=== PATIENT | female | born 1995 | race Caucasian/White ===

== ENCOUNTER 2016-12-22 14:57 | Outpatient (CLI) | payer OTHER ==
[~2016-12-22] VITALS: Ht 162.6 cm; Wt 131.0 kg
[~2016-12-22 14:57] MED LIST: INSPMPHMLG
[2016-12-22] MEDS ORDERED: ACETAMINOPHEN 325 MG TAB PO PRN (15:15)
[2016-12-22] MEDS ORDERED: ONDANSETRON 4 MG TAB PO PRN (15:15)
[2016-12-22 15:26] LABS: BASO % 0.2 %; BASO ABS # 0.02 K/uL (0-0.2); COMPLETE YES; EOS % 0.7 %; HEMATOCRIT 30.8 % (37-47); IG% 0.3 %; LYMPH % 13.6 %; LYMPH ABS # 1.39 K/uL (1.2-3.4); MEAN CELL VOLUME 82.1 fL (80-100); MEAN CORPUSCULAR HEMOGLOBIN 27.2 pg (25-34); MEAN CORPUSCULAR HGB CONC 33.1 g/dl (32-36); MEAN PLATELET VOLUME 9.3 fL (7.4-10.4); MONO % 5.7 %; NEUT % 79.5 %; PLATELET COUNT 315 K/uL (130-400); RED BLOOD COUNT 3.75 M/uL (4.2-5.4); WHITE BLOOD COUNT 10.19 K/uL (4.8-10.8)
[2016-12-22 15:35] LABS: INR 0.9 (0.9-1.1); PROTHROMBIN TIME (PATIENT) 9.7 SECONDS (9.0-12.0)
[2016-12-22 15:45] LABS: ALT/SGPT 12 U/L (12-78); BLOOD UREA NITROGEN 10 mg/dl (7-18); BUN/CREATININE RATIO 16.2 (10-20); CALCIUM 9.1 mg/dl (8.5-10.1); CARBON DIOXIDE 23 mmol/L (21-32); CHLORIDE 109 mmol/L (98-107); CREATININE 0.61 mg/dl (0.60-1.20); GLUCOSE 95 mg/dl (70-99); POTASSIUM 3.7 mmol/L (3.5-5.1); SODIUM 140 mmol/L (136-145)
[2016-12-22 15:48] LABS: ALB/GLOB RATIO 0.5 (0.9-2); ALKALINE PHOSPHATASE 116 U/L (45-117); AST/SGOT 14 U/L (15-37)
[2016-12-22 16:01] LABS: URINE APPEARANCE CLEAR (CLEAR); URINE BILIRUBIN NEG (NEG); URINE COLOR YELLOW; URINE EPITHELIAL CELL AUTO >30 /lpf (0-5); URINE NITRITE NEG (NEG); URINE SPECIFIC GRAVITY 1.013 (1.000-1.030); UROBILINOGEN NEG (NEG); ZZUR CULT IF INDIC CLEAN CATCH YES
[2016-12-22 16:04] LABS: MANUAL MICROSCOPIC REQUIRED? NO; REVIEW REQ? NO
[2016-12-22 16:15] VITALS: Ht 162.6 cm; Wt 131.0 kg
[2016-12-22] MEDS ORDERED: FERR1TAB23 (16:15)
[2016-12-22] MEDS ORDERED: CHOL1000 PO (16:15)
[2016-12-22] MEDS ORDERED: PRENTAB26 PO (16:15)
[2016-12-22] MEDS ORDERED: INSPMPNVLG (16:15)
[2016-12-22] MEDS ORDERED: ASPI81TA28 PO (16:15)
--- NOTE | 2016-12-22 17:07 | Discharge Instructions ---
Discharge Instructions Date of Service Dec 22, 2016. Admission Reason for Admission: Rule Out Preclampsia Discharge Discharge Diagnosis / Problem: Headache Discharge Goals Goal(s): Continuing OB care Activity Recommendations Activity Limitations: as noted below SPECIAL CARE INSTRUCTIONS: Call Doctor if: * Regular contractions every 5 minutes or greater than 5 contractions in one hour. * Bleeding * Water breaks or is leaking * Decreased movement * Fever >100.4 degrees F * Pain not relieved by routine measures or pain medication ordered. FOLLOW UP VISIT: Return to Labor and Delivery on for /call for appointment time . Follow-up Visit with: When: . Current Hospital Diet Patient's current hospital diet: Diabetes Type 1 Diet Discharge Diet Recommended Diet: Diabetes Type 1 Diet Pending Studies Studies pending at discharge: yes (Urine culture) List of pending studies: Urine culture Work Instructions Return To Work: 2 days Medical Emergencies . Who to Call and When: Medical Emergencies: If at any time you feel your situation is an emergency, please call 911 immediately. . Non-Emergent Contact Non-Emergency issues call your: Surgeon Call Non-Emergent contact if: temperature is above 100.5, your pain is not controlled . . "Provider Documentation" section prepared by Xavier Kong. . VTE Core Measure Inpt VTE Proph given/why not?: Treatment not indicated
[2016-12-22 17:25] LABS: URINE PROTIEN/CREAT RATIO 0.2 (0-0.2); URINE TOTAL PROTEIN 13.2 mg/dl (0-11.9)
== END 2016-12-22 17:26 | disposition home or self-care (01) ==
LOC: C.OPB 14:57 → C.LD 14:59 → C.OPB 17:26
PROVIDERS: ATTEND Obstetrics & Gynecology
DX: O99.89 Other specified diseases and conditions complicating pregnancy, childbirth and the puerperium (principal); R51 Headache; O99.213 Obesity complicating pregnancy, third trimester; E66.01 Morbid (severe) obesity due to excess calories; O24.013 Pre-existing type 1 diabetes mellitus, in pregnancy, third trimester; Z96.41 Presence of insulin pump (external) (internal); Z3A.35 35 weeks gestation of pregnancy